=== PATIENT | female | born 1975 | race Caucasian/White ===

== ENCOUNTER 2016-08-04 08:12 | Outpatient (CLI) ==
--- NOTE | 2016-08-04 08:43 | DI ---
EXAM: Cervical spine radiographs. HISTORY: Cervical thoracic facet arthropathy. COMPARISON: None. TECHNIQUE: 5 views. FINDINGS: There is straightening of the normal lordosis. Otherwise, the normal curvature and align ment are maintained. Vertebral body and intervertebral disc heights are normal. Mild mid-cervical facet arthropathy is present which may cause mild neural forminal narrowing. No fracture or subluxa tion is seen. Prevertebral soft tissues are unremarkable. IMPRESSION: Mild mid-cervical facet arthropathy.
--- NOTE | 2016-08-04 08:46 | DI ---
EXAM: Three views of the thoracic spine. History: Back pain. Findings / impression: No acute fracture or subluxation. Disc space heights are preserved. Mild S -shaped scoliosis with [place] angle of 10 degrees centered between T5 and L1.
== END 2016-08-04 08:13 | disposition home or self-care (01) ==
LOC: RAD 08:12
PROVIDERS: ATTEND Pain Medicine Interventional Pain Medicine
DX: M47.814 Spondylosis without myelopathy or radiculopathy, thoracic region (principal); M51.37 Other intervertebral disc degeneration, lumbosacral region; M51.36 Other intervertebral disc degeneration, lumbar region; M51.35 Other intervertebral disc degeneration, thoracolumbar region; M51.34 Other intervertebral disc degeneration, thoracic region; M47.812 Spondylosis without myelopathy or radiculopathy, cervical region; M50.31 Other cervical disc degeneration, high cervical region

== ENCOUNTER 2016-09-04 16:25 | Outpatient (CLI) ==
[2016-09-04 17:27] LABS: FLU INTERNAL QC INTERNAL QC VALID; RAPID FLU A NEGATIVE (NEGATIVE); RAPID FLU B NEGATIVE (NEGATIVE)
== END 2016-09-04 16:26 | disposition home or self-care (01) ==
LOC: LAB 16:25
PROVIDERS: ATTEND Nurse Practitioner Family
DX: J02.9 Acute pharyngitis, unspecified (principal); R52 Pain, unspecified
CPT/HCPCS: 87651; 87804; 87880

== ENCOUNTER 2016-10-01 14:38 | Emergency (ER) ==
[2016-10-01 14:55] VITALS: BP 141/65; TEMP 98.6; BMI 38.7
--- NOTE | 2016-10-01 16:16 | ED.PDOC ---
General ED Provider: Dr. KATARZYNA GUTIÉRREZ JR Chief Complaint: Back Pain Stated Complaint: LEFT LOWER BACK AND HIP PAIN.[End]BURNING PAIN TO LEFT LOWER BACK[End]3 days 98.6 72 20 98% 141/65 10 Time Seen by Physician: 16:15 Mode of Arrival: Walk-In Information Source: Patient Exam Limitations: No limitations [facility] Documentation Reviewed and Agree: No Review of Systems - Review Of Systems Constitutional: Reports: No symptoms Eyes: Reports: No symptoms Ears, Nose, Mouth, Throat: Reports: No symptoms Respiratory: Reports: No symptoms Cardiac: Reports: No symptoms GI: Reports: No symptoms : Reports: No symptoms Musculoskeletal: Reports: Back pain, Muscle pain, Other (radiating down left lateral leg) Skin: Reports: No symptoms Neurological: Reports: Other Endocrine: Reports: No symptoms Hematologic/Lymphatic: Reports: No symptoms All Other Systems: Other Past Medical History - Past Medical History Previously Healthy: Yes (chronic back pain) Endocrine: Reports: None Cardiovascular: Reports: None Respiratory: Reports: None Hematological: Reports: None Gastrointestinal: Reports: None Genitourinary: Reports: None Neuro/Psych: Reports: None Musculoskeletal: Reports: Back Pain (radiating int left leg) Cancer: Reports: None Last Menstrual Period: 08/28 - Surgical History General Surgical History: Reports: None - Family History Family History: Reports: Unknown - Social History Smoking Status: Never smoker Hx Substance Use: No Alcohol Screening: Occasionally - Immunizations Tetanus Shot up to Date: Yes Physical Exam - Physical Exam Appearance: Well-appearing, Obese Ill-appearing: Moderate Pain Distress: Moderate Eyes: TRAVON, EOMI, Conjunctiva clear ENT: Ears normal Neck: Supple Respiratory: Airway patent, Breath sounds clear, Breath sounds equal, Respirations nonlabored Musculoskeletal: Normal strength, ROM intact, No edema, No calf tenderness ( negative straight leg, pain and tenderness ls spine and laft lateral thigh no skin changes) Neurological: Sensation intact, Motor intact, Reflexes intact, Cranial nerves intact, Alert, Oriented Critical Care Note - Critical Care Note Total Time (mins): 0 Course - Course Orders, Labs, Meds: Orders Category Date Time Status Meperidine HCl/Pf [Demerol 50 mg/ml Syringe] MEDS 10/01/16 16:27 Discontinued 50 mg IM ONCE STA Methylprednisolone Sod Succ/Pf [Solu-Medrol 125 mg] MEDS 10/01/16 16:27 Discontinued 125 mg IM ONCE STA Medications Discontinued Medications Generic Name Dose Route Start Last Admin Trade Name Jeffrey MALDONADO Reason Stop Dose Admin Meperidine HCl 50 mg 10/01/16 16:27 Demerol 50 Mg/Ml Syringe IM 10/01/16 16:28 ONCE STA Methylprednisolone Sodium Succinate 125 mg 10/01/16 16:27 Solu-Medrol 125 Mg IM 10/01/16 16:28 ONCE STA Vital Signs: Temp Pulse Resp BP Pulse Ox 10/01/16 14:50 98.6 F 72 20 141/65 H 98 Departure - Departure Time of Disposition: 16:40 Disposition: HOME SELF-CARE Discharge Problem: Back pain at L4-L5 level Instructions: Chronic Back Pain (ED), Lower Back Exercises (ED) Condition: Good Pt referred to PMD for follow-up: Yes Additional Instructions: note that best treatment for back and knee pain is exercise weight loss usually helps may continue chronic medications as prescribed- recommend limit to less than amount allowed discuss symptoms with pain management may follow up with [facility] Allergies/Adverse Reactions: Allergies No Known Allergies Allergy (Unverified 01/08/16 14:59) Home Medications: Ambulatory Orders Gabapentin 300 mg PO TID 01/08/16 Hydrocodone/Acetaminophen [[place] 10-325 Tablet] 1 each PO TID 01/08/16
[2016-10-01] MEDS: SOLU-MEDROL 125 MG IM STA (16:59)
[2016-10-01] MEDS: DEMEROL 50 MG/ML SYRINGE IM STA (17:00)
== END 2016-10-01 17:38 | disposition home or self-care (01) ==
LOC: ED 14:38
DX: M54.5 Low back pain (principal)
CPT/HCPCS: 96372; 99282